=== PATIENT | female | born 1940 | race Caucasian/White ===

== ENCOUNTER 2023-12-14 17:18 | Emergency (ER) | payer OTHER ==
[2023-12-14 17:25] VITALS: TEMP 97.7; BMI 32.8
[2023-12-14 21:51] LABS: BASO % 0.5 % (0-2.0); EOS % 0.7 % (0-4.5); HEMATOCRIT 39.2 % (32.4-45.2); HEMOGLOBIN 12.9 GM/dL (10.7-15.3); MCH 28.8 pg (25.7-33.7); MCHC 32.9 g/dl (32.0-36.0); MEAN CELL VOLUME 87.5 fl (80-96); MEAN PLT VOLUME 8.8 fl (7.5-11.1); MONO % 5.9 % (3.8-10.2); NEUT % 74.9 % (42.8-82.8); PLATELET COUNT 204 10^3/uL (134-434); RBC 4.48 M/mm3 (3.60-5.2); RDW 15.4 % (11.6-15.6); WHITE BLOOD COUNT 6.7 K/mm3 (4.0-10.0)
[2023-12-14 21:59] LABS: INR 1.17 (0.83-1.09); PROTHROMBIN TIME (PATIENT) 13.6 SEC (9.7-13.0)
[2023-12-14 22:02] LABS: ACTIVATED PTT 30.7 SECONDS (25.2-36.5)
[2023-12-14 22:04] LABS: POTASSIUM 4.5 mmol/L (3.5-5.1)
[2023-12-14 22:05] LABS: CALCIUM 9.2 mg/dL (8.5-10.1)
[2023-12-14 22:06] LABS: ALBUMIN 3.6 g/dl (3.4-5.0); BLOOD UREA NITROGEN 13.4 mg/dL (7-18)
[2023-12-14 22:09] LABS: CREATININE 0.8 mg/dL (0.55-1.3)
[2023-12-14 22:11] LABS: BILIRUBIN,TOTAL 0.4 mg/dL (0.2-1); TOT PROT 7.6 g/dl (6.4-8.2)
[2023-12-14 22:14] LABS: N-TERMINAL BNP 278.6 pg/ml (5-450)
[2023-12-14 23:42] VITALS: BP 160/65; PULSE 80; RESP 19
== END 2023-12-14 23:46 | disposition home or self-care (01) ==
LOC: JER 17:18
DX: M25.572 Pain in left ankle and joints of left foot (principal); R60.0 Localized edema; I10 Essential (primary) hypertension
CPT/HCPCS: 36415; 73610-TC-LT-FY; 73630-TC-LT; 80053; 83880; 84484; 84550; 85025; 85610; 85651; 85730; 86140; 86850; 86900; 86901; 87040; 93971-TC; 99285-25